=== PATIENT | female | born 1980 | race Caucasian/White ===

== ENCOUNTER 2019-08-23 10:38 | Outpatient (CLI) | payer MEDICAID, SELFPAY ==
--- NOTE | 2019-08-23 13:56 | ONC CON_ITS ---
Dr. Forde New Patient Note Patient: Priti Gudino Unit #: [id number]: 1980 Dicatated By: Joe Forde M.D.Date of Visit: August 23, 2019 Onc MED New Patient/Consult Referring Physician: Dr. Rochelle Kendrick M.D. Chief Complaint: Anemia. History of Present Illness: This is a 39 year-old woman with anemia. She had presented with worsening fatigue, and she was found to be anemic. Her records indicate that her B12 levels were low, but none of those initial reports are available. Her follow-up laboratory studies on 07/19/2019 included CBC showing hemoglobin 10.7 g, white blood cell count 5000, and platelet count 354,000. The red cell indices were hypochromic/microcytic with MCV 66 and MCH 20. The serum iron studies showed low serum iron at 24 mcg/dL with transferrin saturation 6%. Her folate level was normal at 6.8 ng/mL. Her antiparietal cell antibody titer was elevated at 124.7 units, normal range 0-20.0. Her LDH level was in the upper normal range at 214 IU/L. She has now started replacement therapy with B12 injections. She complains that she is constantly tired, though her fatigue is not as bad now as it had been. She is working every day. She actually has normal activity. Her ECOG score is 0. Her other vitamin supplements include a women's multivitamin tablet daily and a vitamin D2 supplement weekly. She has good appetite, and she has had a weight gain of 20 pounds. She does eat red meat. She does not have fever, night sweats, or hot flashes. She tends to have heavy menstrual periods and her most recent period was horrible . She has no GI complaints. In particular, she has not been aware of any blood in the stool. Her other main complaint is that for the past 2 years she has been having floaters in her right eye, and she also has intermittent visual change, which she describes as similar to looking through a kaleidoscope. She does not have headache. She recently had an episode of some numbness in her fingers and she also had a numbing sensation in her upper back. Past Medical History: She has had no ongoing medical illnesses. Past Surgical History: Her only surgery was a cholecystectomy. Medications: Cyanocobalamin 1 mL (of 1000 mcg/mL) Injection q 4 weeks, HM Ibuprofen IB 3 Tablet (of 200 mg) Oral PRN, Multivitamin Adult 1 Tablet Oral daily, Vitamin D2 1 Tablet (of 1.25 mg) Oral q 7 days Allergies: No Known Allergies. Social History: Ms. Gudino is single. 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 She has a history of smoking 1/2 pack of cigarettes daily for 20 years. She has just occasional alcohol use. Family History: Father still living at age 63. He has coronary artery disease and congestive heart failure, and he also has had a stroke. He apparently has been treated for colon cancer, bladder cancer, and skin cancer. Mother at age 49 with some type of neurologic disorder. She also had lupus, history of seizures, and coronary artery disease. One brother at age 35 with a widely metastatic cancer. The primary source was apparently not determined. Another brother has a blood clotting disorder. There is heart disease on her mother side of the family. Review Of Symptoms: Constitutional - She generally feels fatigued. She tries easily. 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 Her appetite is good. She has had a 20 pound weight gain. No fever, chills, hot flashes, or night sweats. ECOG score is 0, Eyes - She is having floaters and alteration in her vision, ENMT - No hearing loss or tinnitus. No sinus congestion/drainage. No mouth sores. No sore throat or difficulty swallowing, Hematologic/Lymphatic - She bruises easily, Respiratory - She gets short of breath with more strenuous activity. She has a chronic smoker's cough. No pleuritic pain or hemoptysis, Cardiovascular - No angina pain. No palpitations, Gastrointestinal - No nausea or vomiting. No heartburn or acid reflux. No diarrhea or constipation. No blood in the stool or black stools, Genitourinary (F) - No dysuria or hematuria. No urinary frequency. No urgency or incontinence. She generally has heavy menstrual periods. Her most recent period was horrible, Musculoskeletal - No joint or bone pain, but her joints sometimes crack or pop, Integumentary - No skin complications, Neurologic - No headache or dizziness. She recently had numbness in her fingers. She also had a numb sensation in her upper back, Psychiatric - No anxiety or depression. No insomnia. Vital Signs: Performed on August 23, 2019 10:57: 0, 33.67 (HIGH), 2.09 sq.m, 67.00 in, 98 %, 66 /min, 18 /min, 127/84 mm(hg), 98.0 F (LOW), and 215.0 lbs (HIGH). Physical Examination: Constitutional - She appears to be in good general health, Eyes - Sclerae nonicteric. Conjunctivae clear, ENMT - No lesions noted in the oral cavity, Neck - No mass or thyromegaly, Hematologic/Lymphatic - No cervical, clavicular, or axillary adenopathy, Respiratory - Lungs are clear with good air movement bilaterally, Cardiovascular - Heart rhythm is regular. There is a II/ systolicno murmur. There is no gallop or rub noted, Abdomen - Soft and non-tender. Liver and spleen are not enlarged. There is no abdominal mass or ascites noted and there is no inguinal adenopathy, Back/Spine - No spine or CVA tenderness noted, Extremities - There is mild swelling of the right leg. The right calf circumference measures 46 cm compared to 45 on the left. Pedal pulses are palpable bilaterally, Integumentary - No rashes. No suspicious skin lesions noted, Neurologic - No focal neurologic deficits noted. Impression: 1. Patient with mild anemia, hypochromic/microcytic. Her serum iron studies are consistent with iron deficiency. This is most likely due to menstrual blood loss. It is uncertain to what extent inadequate oral iron absorption may be a contributing factor. 2. She also had evidence of B12 deficiency. Based on the results of her anti-parietal cell antibody, this does appear to be due to pernicious anemia. She has started replacement therapy with B12 injections. 3. She reports visual changes in her right eye. The cause is uncertain, but I wonder if some component may not be due to a migraine variant. Plan: The laboratory findings and clinical implications were reviewed with the patient. She will continue her B12 replacement as prescribed. She will now start oral iron supplementation with ferrous sulfate 325 mg twice daily, as tolerated. She is to notify us if she has GI side effects with it. I will otherwise just plan a follow-up visit in 1 month. If she is not able to correct the iron deficiency with oral iron, I will plan to give her parenteral iron replacement with Injectafer. If she remains anemic despite correction of the iron and B12 deficiencies, she will need undergo bone marrow aspiration/biopsy. Signed By: Joe Forde M.D. <<Signature on File>>
== END 2019-08-23 10:39 | disposition home or self-care (01) ==
PROVIDERS: PCP Family Medicine; Visit Provider Internal Medicine Medical Oncology
DX: D50.9 Iron deficiency anemia, unspecified (principal); E53.8 Deficiency of other specified B group vitamins; N92.0 Excessive and frequent menstruation with regular cycle; H53.8 Other visual disturbances
CPT/HCPCS: 99204

== ENCOUNTER 2019-09-03 14:01 | Outpatient (CLI) | payer MEDICAID, SELFPAY ==
--- NOTE | 2019-09-03 14:09 | US_ITS ---
WS: [id number] TRANSABDOMINAL PELVIC AND TRANSVAGINAL PELVIC ULTRASOUND HISTORY: ABNORMAL UTERINE BLEEDING COMPARISON: None available. Uterus: 8.6 cm x 5.0 cm x 4.7 cm. Normal antegrade uterus. No fibroid or mass. Endometrium: 0.7 cm. Normal homogeneity. Right ovary: 1.8 cm x 1.3 cm x 1.8 cm. Normal ovary with normal vascularity. Left ovary: 2.7 cm x 3.0 cm x 2.9 cm. Lacy-like reticular pattern involving the LEFT ovary consistent with hemorrhagic cyst and retracting clot. Retracting hemorrhagic cyst measures 2.1 x 1.4 x 1.8 cm. Normal ovarian vascularity. No free fluid. US/US pelvic with transvaginal IMPRESSION: Small hemorrhagic cyst LEFT ovary. Otherwise negative.
== END 2019-09-03 14:02 | disposition home or self-care (01) ==
LOC: RAD 14:05
PROVIDERS: PCP Family Medicine; Visit Provider Family Medicine
DX: N94.10 Unspecified dyspareunia (principal); N93.9 Abnormal uterine and vaginal bleeding, unspecified; N83.202 Unspecified ovarian cyst, left side
CPT/HCPCS: 76830; 76856

== ENCOUNTER 2019-11-15 14:45 | Outpatient (CLI) | payer MEDICAID, SELFPAY ==
--- NOTE | 2019-11-15 14:50 | US_ITS ---
WS: [id number] EXAM: TRANSABDOMINAL AND TRANSVAGINAL PELVIC SONOGRAM DATE OF EXAMINATION: 11/15/2019, 1448 hours COMPARISON: Pelvic sonogram from 09/03/2019 HISTORY: 39 years old with follow-up ovarian cyst. LMP 10/31/2019, FINDINGS: Uterus measures 8.00 cm in length, 5.7 cm in width, and 4.2 in depth. Small nabothian cysts are seen in the cervix. On transvaginal imaging the endometrial stripe is estimated at 7.[address] likely the patient's late proliferative phase. Left ovary measures 2.6 x 2.0 x 2.7 cm. Color-flow and spectral Doppler demonstrates flow within the left ovary. Previous complex cyst in left ovary has regressed Right ovary measures 4.6 x 3.4 x 2.2 cm. Color-flow and spectral Doppler demonstrates flow within the right ovary. Several follicular cysts are seen in the right ovary otherwise unremarkable. Trace free fluid in the cul-de-sac. US/US pelvic with transvaginal OPINION: Interval resolution of a complex cyst/hemorrhagic cyst left ovary. Normal appearance to both ovaries with normal flow on today's exam. Normal appearance to the uterus.
== END 2019-11-15 14:46 | disposition home or self-care (01) ==
LOC: US 14:47
PROVIDERS: Visit Provider Nurse Practitioner Family
DX: N83.202 Unspecified ovarian cyst, left side; N83.201 Unspecified ovarian cyst, right side
CPT/HCPCS: 76830; 76856

== ENCOUNTER → 2020-05-01 17:05 | Outpatient (BNVA) | payer MEDICAID, SELFPAY | PROVIDERS: Visit Provider Obstetrics & Gynecology | DX: N92.0 Excessive and frequent menstruation with regular cycle (principal) | CPT/HCPCS: 85027 ==

== ENCOUNTER → 2020-06-06 14:30 | Outpatient (BNVA) | payer MEDICAID, SELFPAY | PROVIDERS: Visit Provider Obstetrics & Gynecology | DX: N92.1 Excessive and frequent menstruation with irregular cycle (principal) | CPT/HCPCS: 81025; 88305 ==